=== PATIENT | female | born 1995 | race Caucasian/White ===

== ENCOUNTER 2019-02-26 07:15 | Inpatient (IN) ==
[2019-02-26] MEDS ORDERED: PENICILLIN G POTASSIUM 6 MU in DEXTROSE 5% 250 ML IV STA (08:02)
[2019-02-26] MEDS ORDERED: OXYTOCIN 30 UNITS/500 ML BAG IV PRN ×2 (08:02→13:53)
[2019-02-26] MEDS ORDERED: LACTATED RINGER'S 1,000 ML IV PRN ×2 (08:02→09:00)
[2019-02-26] MEDS ORDERED: BUPIVACAINE 0.25% 30 ML VIAL ONE ×2 (08:05→08:09)
[2019-02-26] MEDS ORDERED: fentaNYL citrate 100 MCG/2 ML VIAL ONE ×2 (08:06→08:10)
[2019-02-26] MEDS ORDERED: ePHEDrine sulfate 50 MG/ML AMP ONE ×2 (08:06→08:09)
[2019-02-26] MEDS ORDERED: fentaNYL 2MCG/ML ROPIV 1.25MG/ML 100 ML BAG EPI ONE ×2 (08:06→08:11)
--- NOTE | 2019-02-26 08:09 | Obstetrical Progress Note ---
Date of Service February 26, 2019 Subjective here to rule out labor Actively suyapa in moderate to severe pain vervix 8/100/-2/vertex/posterior SROM on exam FHT Cat 1 GBS is positive Will start antibiotics Results & Data Vital Signs (Past 12 Hours) Vital Signs Temp Resp 02/26/19 07:15 36.8 C 18
[2019-02-26] MEDS ORDERED: BUTORPHANOL TARTRATE 2 MG/ML VIAL IV STA (08:11)
[2019-02-26] MEDS ORDERED: OXYTOCIN 30 UNITS/500ML NSS ONE (08:12)
[2019-02-26] MEDS ORDERED: LACTATED RINGER'S 1,000 ML IV SCH (08:15)
[2019-02-26 08:23] LABS: Hematocrit (blood only) 38.3 % (37-47); Hemoglobin 13.4 g/dL (12.0-16.0); Mean Corpuscular Volume 84.5 fL (80-100); Mean Platelet Volume 10.8 fL (7.4-10.4); Platelet Count 190 K/uL (130-400); RDW Coefficient of Variation 14.6 % (11.5-14.5); RDW Standard Deviation 45.2 fL (36.4-46.3); Red Blood Count 4.53 M/uL (4.2-5.4)
[2019-02-26] MEDS ORDERED: BUTORPHANOL TARTRATE 2 MG/ML VIAL ONE (08:23)
--- NOTE | 2019-02-26 08:39 | Anesthesiology Consultation ---
Date of Service February 26, 2019 Assessment & Plan (1) Encounter for pre-operative examination: Chart Review Chart Review: Patient NOT seen in Pre Admission Testing and Acceptable Risk for Labor Epidural Consults Requested none ASA ASA2 Proposed Anesthesia Anesthesia Type: Labor Epidural and CSE Risk / Benefits Reviewed With: PT / POA / Parent / Guardian, Accepts Plan and Informed Consent Obtained NPO Date Last Intake of Fluids: 02/26/19 Time Last Intake of Fluids: 06:30 Date Last Intake of Solids: 02/25/19 Time Last Intake of Solids: 18:00 History Allergies Allergy/AdvReac Type Severity Reaction Status Date / Time No Known Allergies Allergy Verified 02/25/19 05:30 Medications Home Medications Medication Instructions Recorded Confirmed Last Taken ferrous sulfate [Iron (ferrous 325 mg PO DAILY 02/25/19 02/25/19 02/24/19 08:00 sulfate)] vit no.[id number] 1 tab PO DAILY 02/25/19 02/25/19 02/24/19 08:00 [ Vitamin] sertraline [Zoloft] 50 mg PO DAILY 02/25/19 02/25/19 02/24/19 08:00 Past Medical History Medical History Abnormal Papanicolaou smear of cervix with positive human papilloma virus (HPV) test 08/27/18; patient to have re-test in 12 months Anxiety Takes Zoloft Panic attacks Past Anesthesia History No Hx of Anesthesia Complications and No Family Hx of Anesthesia Complications History of PONV No Motion Sickness Screening History of Motion Sickness: No Social History Smoking Status: Never smoker Hx Alcohol Use: No Hx Substance Use: No substance use type: does not use Exercise / Class Metabolic Activity II 4-5 Yardwork/Stairs/Walk up hill Review of Systems no chest pain or sob Physical Exam Vital Signs Last Vital Signs Temp 36.8 C 02/26/19 07:15 Resp 18 02/26/19 07:15 ENMT Mouth: no TMJ abnormality Thyromental Distance: > or= 3.5 Finger Breadths Mallampati Class: II Neck normal visual inspection Respiratory normal respiratory effort Auscultation: lungs clear to auscultation bilaterally Cardiovascular Rate/Rhythm: regular rate and regular rhythm Musculoskeletal Spine: normal cervical ROM Neurologic moves all extremities Psychiatric Orientation: alert and oriented x 3 Testing Laboratory Results 02/26/19 08:12
[2019-02-26] MEDS ORDERED: NALBUPHINE HCL INJ 10 MG/ML AMP IV PRN (09:00)
[2019-02-26] MEDS ORDERED: NALOXONE HCL 0.4 MG/1 ML VIAL/CARP IV PRN (09:00)
[2019-02-26] MEDS ORDERED: NALOXONE HCL 1 MG in SODIUM CHLORIDE 0.9% 1000ML 1,000 ML IV PRN (09:00)
[2019-02-26] MEDS ORDERED: ePHEDrine sulfate 50 MG/ML AMP IV PRN (09:00)
[2019-02-26] MEDS ORDERED: DiphenhydrAMINE HCL 50 MG/ML VIAL IV PRN (09:00)
[2019-02-26] MEDS ORDERED: ONDANSETRON INJ 2 MG/ML 2 ML VIAL IV PRN (09:00)
[2019-02-26] MEDS ORDERED: fentaNYL 2MCG/ML ROPIV 1.25MG/ML 100 ML BAG EPI PRN (09:00)
[2019-02-26] MEDS ORDERED: PENICILLIN G POTASSIUM 3 MU in DEXTROSE 5% 100 ML IV PRN (11:53)
[2019-02-26] MEDS ORDERED: HYDROCORTISONE ACETATE 25 MG SUPP PR PRN (13:53)
[2019-02-26] MEDS ORDERED: DIPHTHERIA/TETANUS/PERTUSSIS 0.5 ML SYR/VIAL IM ONE (13:53)
[2019-02-26] MEDS ORDERED: BISACODYL 10 MG SUPP PR PRN (13:53)
[2019-02-26] MEDS ORDERED: BENZOCAINE 20% AER SPR 82.5 GM CAN EXT PRN (13:53)
[2019-02-26] MEDS ORDERED: ACETAMINOPHEN 325 MG TAB PO PRN ×2 (13:53→17:50)
--- NOTE | 2019-02-26 14:03 | Procedure Note ---
Vaginal Delivery Summary Date of Service February 26, 2019 Delivery note live male LOP over intact perineum with nuchal cord x1 reduced at delivery. Apgars and weight pending. Cord blood obtained and cord for blood gasses obtained. Placenta delivered spontaneously and intact. First degree tear repaired with 3/0 Vicryl suture. EBL 350 ml. Final sponge, needle and instrument count are correct. Mom stable and baby to nursery.
[2019-02-26 14:27] LABS: Base Excess Cord Venous Blood -2.2 mEq/L (-7.7-1.9); Cord Venous Blood HCO3 22 mmol/L (18.4-26.8); Cord Venous Blood PCO2 37 mmHg (30.4-57.2); Cord Venous Blood PO2 37 mmHg (14.1-43.3)
--- NOTE | 2019-02-26 14:53 | Anesthesia Procedure Note ---
Date of Service February 26, 2019 Anesthesia Post Epidural Note Vital Signs Vital Signs: Temp Pulse Resp BP Pulse Ox 37.6 C H 93 H 18 103/56 L 96 02/26/19 13:00 02/26/19 14:47 02/26/19 13:00 02/26/19 14:37 02/26/19 14:47 Notes Mental Status: alert / awake / arousable and participated in evaluation Nausea / Vomiting: adequately controlled Pain: adequately controlled Airway Patency, RR, SpO2: stable & adequate BP & HR: stable & adequate Hydration State: stable & adequate Neuraxial Anesthesia: was administered and sensory block is resolving Anesthetic Complications: no major complications apparent and Pt Satisfied with anesthetic care Epidural: Removed without complications and With tip intact
[2019-02-26] MEDS: DOCUSATE SODIUM 100 MG CAP PO SCH (21:16)
[2019-02-26] MEDS: IBUPROFEN 600 MG TAB PO PRN (22:25)
[2019-02-26] MEDS: SUPERCREAM 0.870% 15 GM JAR EXT PRN (23:57)
[2019-02-27] MEDS: DOCUSATE SODIUM 100 MG CAP PO SCH ×2 (08:29→19:40)
[2019-02-27] MEDS: PRENATAL VITAMIN 1 TAB PO SCH (08:29)
[2019-02-27] MEDS: SERTRALINE HCL 50 MG TABLET PO SCH (08:30)
[2019-02-27] MEDS: FERROUS SULFATE 325 MG TAB PO SCH (08:30)
[2019-02-27] MEDS: IBUPROFEN 600 MG TAB PO PRN ×3 (08:30→19:40)
[2019-02-27] MEDS ORDERED: PRENATAL VITAMIN 1 TAB PO SCH (09:00)
[2019-02-27] MEDS ORDERED: FERROUS SULFATE 325 MG TAB PO SCH (09:00)
[2019-02-27 10:32] LABS: Hematocrit (blood only) 29.9 % (37-47); Hemoglobin 10.3 g/dL (12.0-16.0); Mean Corpuscular Hgb Conc 34.4 g/dL (32-36); Mean Corpuscular Volume 86.4 fL (80-100); Mean Platelet Volume 9.9 fL (7.4-10.4); Platelet Count 177 K/uL (130-400); RDW Standard Deviation 47.2 fL (36.4-46.3); Red Blood Count 3.46 M/uL (4.2-5.4); White Blood Count 16.95 K/uL (4.8-10.8)
--- NOTE | 2019-02-27 13:36 | Obstetrical Progress Note ---
Date of Service February 27, 2019 Assessment & Plan (1) normal course: PPD #1 pt doing well anticipate disch tomorrow Subjective Ambulation: ambulating normally Voiding: no voiding problems Passing Gas:: Yes Diet Tolerance:: regular diet Lochia:: Small Feeding Type:: breast feeding Review of Systems All systems reviewed & are unremarkable except as noted in HPI & below Physical Exam Vital Signs (Past 24 Hours) Last Vital Signs Temp 36.8 C 02/27/19 12:15 Pulse 89 02/27/19 12:15 Resp 18 02/27/19 12:15 BP 106/68 02/27/19 12:15 Pulse Ox 97 02/27/19 12:15 Constitutional WD/WN, vitals as above well developed and well nourished Eyes PERRL, conjunctivae normal, anicteric sclerae Neck trachea midline, no thyromegaly Respiratory normal respiratory effort, lungs clear to auscultation Auscultation: no crackles, no rales and no wheezes Cardiovascular RRR, no murmur, no edema Gastrointestinal (Abdomen) normal bowel sounds, soft, nontender, no hepatosplenomegaly Uterus is below umbilicus Musculoskeletal no cyanosis or clubbing, extremities motor strength 5/5 Skin no rashes, warm and dry Neurologic patellar DTR's 2+ bilat, sensation intact Psychiatric A+Ox3, euthymic affect Genitourinary normal external appearance
[2019-02-27] MEDS ORDERED: BISACODYL 5 MG TABEC PO SCH (20:00)
[2019-02-28] MEDS: SERTRALINE HCL 50 MG TABLET PO SCH (09:14)
[2019-02-28] MEDS: FERROUS SULFATE 325 MG TAB PO SCH (09:15)
[2019-02-28] MEDS: SUPERCREAM 0.870% 15 GM JAR EXT PRN (09:15)
[2019-02-28] MEDS: PRENATAL VITAMIN 1 TAB PO SCH (09:15)
[2019-02-28] MEDS: IBUPROFEN 600 MG TAB PO PRN (09:20)
[2019-02-28 10:58] LABS: Hematocrit (blood only) 30.3 % (37-47); Hemoglobin 10.3 g/dL (12.0-16.0)
--- OUTSIDE RECORDS SUMMARY | 2019-03-02 20:56 | External Medical Summary | Continuity of Care Document ---
:1995 Author Name Nestor Roman Address Unavailable Unavailable , Care Team Providers Name Role Phone Nestor Roman Unavailable [email or web address] Fanny Patel M.D. Unavailable [email or web address] Roman, L Unavailable Unavailable Unavailable Unavailable Unavailable Problems Wheezing (786.07) (R06.2) Attention-deficit/hyperactivity disorder (314.01) (F90.9) Cerumen impaction (380.4) (H61.20) Problems with learning (V40.0) (F81.9) Allergies and Adverse Reactions No Known Drug Allergies (Allergy) Medications Ibuprofen 600 MG Oral Tablet; TAKE 1 TABLET 3 TIMES DA JANET NEEDED. Abel Patel Start: 10-Jul-2012 Quantity: 30 Refills: 2 ProAir HFA 108 (90 Base) MCG/ACT Inhalat ion Aerosol Solution; INHALE 2 PUFFS EVERY 4-6 HOURS NEEDED. Abel Seals Start: 18-Nov-2012 Quantity: 1 8.5 GM Inhaler Refills: 3 Procedures Procedures not documented Immunizations Hepatitis B On: 1995 0:00 Hepatitis B On: 1995 0:00 DTaP On: 1997 0:00 HIB On: 1997 0:00 Polio On: 1997 0:00 DTaP On: 1997 0:00 HIB On: 1997 0:00 Polio On: 1997 0:00 Hepatitis B On: 1997 0:00 DTaP On: 1997 0:00 HIB On: 1997 0:00 Polio On: 1997 0:00 DTaP On: 24-May-1998 0:00 HIB On: 24-May-1998 0:00 MMR On: 24-May-1998 0:00 Varicella On: Jul-1998 DTaP On: 29-Jan-2001 0:00 Polio On: 29-Jan-2001 0:00 MMR On: 29-Jan-2001 0:00 Tdap (Adacel) On: 06-Aug-2008 0:00 HPV (Gardasil) On: 06-Aug-2008 0:00 Meningo (Menactra) On: 06-Aug-2008 0:00 Influenza (Nasal) On: 06-Aug-2008 0:00 HPV (Gardasil) On: 31-Dec-2008 0:00 HPV (Gardasil) On: 03-May-2009 0:00 Influenza A (H1N1) Monoval Vac LIQD On: 22-Sep-2009 12:06 Lot #: [id number], JOHNIE Social History - Smoking Status Current some day smoker Plan of Treatment Planned Observations Planned Goals not documented Results No Known Results Results not documented
== END 2019-02-28 13:00 | disposition home or self-care (01) | DRG 807 ==
LOC: OPB 07:15 → 4S1 07:18 → 4S2 17:35